=== PATIENT | female | born 1965 | race Caucasian/White ===

== ENCOUNTER 2016-09-26 07:58 | Emergency (ER) | payer OTHER ==
[~2016-09-26] VITALS: Ht 152.4 cm; Wt 81.7 kg
[~2016-09-26 07:58] MED LIST: AMARYL4 MG PO; GLUCOPHAGE XR750 MG PO; HYDROCHLOROTH12.5 M1 PO; LISINOPRIL10 MG PO
[2016-09-26] MEDS ORDERED: TRULICITY1.5 MG/0.5 SQ (08:05)
[2016-09-26] MEDS ORDERED: VITAMIN D1000 UNI1 PO (08:05)
[2016-09-26] MEDS ORDERED: INVOKANA300 MG PO (08:05)
[2016-09-26] MEDS ORDERED: FISH OIL 1,001000 M2 PO (08:05)
[2016-09-26] MEDS ORDERED: NAPROSYN500 MG PO (08:58)
== END 2016-09-26 09:15 | disposition home or self-care (01) ==
LOC: ER 07:58
DX: S63.633A Sprain of interphalangeal joint of left middle finger, initial encounter (principal); X58.XXXA Exposure to other specified factors, initial encounter; Y93.89 Activity, other specified; Y92.096 Garden or yard of other non-institutional residence as the place of occurrence of the external cause; Y99.0 Civilian activity done for income or pay

== ENCOUNTER → 2017-01-14 | Outpatient (CLI) | payer OTHER ==
[~2017-01-14] MED LIST changes: +FISH OIL 1,001000 M2 PO; +INVOKANA300 MG PO; +NAPROSYN500 MG PO; +TRULICITY1.5 MG/0.5 SQ; +VITAMIN D1000 UNI1 PO
== END ==
LOC: ULTRA 09:15
DX: N92.0 Excessive and frequent menstruation with regular cycle (principal); N83.202 Unspecified ovarian cyst, left side

== ENCOUNTER → 2017-03-21 | Outpatient (CLI) | payer OTHER ==
[~2017-03-21] VITALS: Ht 152.4 cm; Wt 82.6 kg
[~2017-03-21] MED LIST changes: +ADVAIR 250-501 EACH INH; +DIFLUCAN150 MG PO; +FARXIGA5 MG PO
--- NOTE | ~2017-03-21 | S ---
[facility] [place] [address] SURGICAL PATH RPT PROCEDURE Name: RAFIQ SUAREZ Room #: REG LADY Patito.#: [id number] Admission: 03/21/17 Date of : 63 Discharge: Report #: [id number] Path Case #: [id number] PATHOLOGY REPORT COLLECTION DATE: 03/21/2017 RECEIVED DATE: 03/21/2017 SUBMITTING PHYS: Dr. Panda Grant OTHER PHYS: Dr. Lissa Palma SPECIMEN(S) RECEIVED: A.Sigmoid colon polyp * * * * * * * * * * * * FINAL DIAGNOSIS: Polyp, sigmoid polyp, endoscopic biopsy: - Hyperplastic polyp and lymphoid aggregates. - Negative for dysplasia. (IUV:pit; 03/24/2017) PATHOLOGIST: Nel Blanco M.D. REPORT ELECTRONICALLY SIGNED BY: Nel Blanco M.D. DATE/TIME: 03/24/2017 15:08 * * * * * * * * * * * * GROSS PATHOLOGY: Received in formalin labeled "Rafiq Suarez, sigmoid polyp," is a segment of kelley soft tissue measuring 0.7 cm in maximum dimension. The specimen is submitted entirely in cassette A1. (CAA; 03/22/2017) CLINICAL HISTORY: Screening colon cancer INITIAL CPT CODE(S): A; 33712 Professional services performed by [facility] at [facility] Tianna Stephy Amaya, [place] [address] Technical services performed by [facility] at [address] [place] [address]., [address], [place] [address]. [facility] [address] [place] [address] SURGICAL PATH RPT PROCEDURE Name: SUAREZJEB Room #: REG LADY Soto#: [id number] Admission: 03/21/17 Date of : 63 Discharge: Report #: [id number] Path Case #: [id number] [address] PHONE: [phone] DIRECTOR: Nick Posadas M.D. * * * END OF REPORT * * *
== END | disposition home or self-care (01) ==
LOC: GI
DX: Z12.11 Encounter for screening for malignant neoplasm of colon (principal); D12.5 Benign neoplasm of sigmoid colon; K64.9 Unspecified hemorrhoids
CPT/HCPCS: 62110; 62900

== ENCOUNTER → 2018-06-30 | Outpatient (CLI) | payer OTHER | LOC: RAD 08:45 | DX: Z12.31 Encounter for screening mammogram for malignant neoplasm of breast (principal) ==

== ENCOUNTER → 2018-06-30 | Outpatient (CLI) | payer OTHER | LOC: CAT 09:10 | DX: Z13.6 Encounter for screening for cardiovascular disorders (principal); E78.00 Pure hypercholesterolemia, unspecified ==

== ENCOUNTER → 2018-10-21 | Outpatient (CLI) | payer OTHER | LOC: MRI 09:12 | DX: S43.401D Unspecified sprain of right shoulder joint, subsequent encounter (principal); M19.011 Primary osteoarthritis, right shoulder; X58.XXXD Exposure to other specified factors, subsequent encounter ==

== ENCOUNTER 2019-05-26 05:57 | Day surgery (SDC) | payer OTHER ==
[~2019-05-26] VITALS: Ht 152.4 cm; Wt 33.6 kg
[~2019-05-26 05:57] MED LIST changes: +ASPIR 8181 MG PO; +OMEPRAZOLE 20 M20 M1 PO
[2019-05-26 06:14] VITALS: BP 111/52
--- NOTE | 2019-05-26 08:21 | EKG ---
[address] [address] ELECTROCARDIOGRAM REPORT Name: RAFIQ SUAREZ Room #: 150-1 [facility] M.R.#: [id number] ������������������ Admission: 05/26/19 ������������������ Attend Phys: Graham Juarez Discharge: ������������������ Date of : 63 Report #: [id number] ����������������������������������������������������������������� [id number] THIS REPORT FOR: //name// [facility] Test Date: 2019-05-26 Test Time: 06:23:06 Pat Name: RAFIQ SUAREZ Department: Room: 150 Gender: F [employer]: TONI : 1965 Requested By: Graham Noble Order Number: [id number] MD: Triston Lindsay Measurements Intervals [place] Rate: 73 P: 69 NH: 154 QRS: 37 QRSD: 85 T: 48 QT: 404 QTc: 446 Interpretive Statements Sinus rhythm Normal tracing Compared to ECG 01/28/2015 02:26:05 No significant changes Electronically Signed On 05-26-2019 8:21:24 CDT by Triston Lindsay [email or web address] ��������������������������������������������� <ELECTRONICALLY SIGNED> ���������������������������������������� By: Triston Lindsay MD, [facility] ��������������������������������������������� 05/26/19 0821 2 Triston Lindsay MD, FACC /EPI
[2019-05-26 08:55] VITALS: BP 111/52
--- NOTE | 2019-05-26 10:38 | O ---
[facility] [place] [address] OPERATIVE REPORT Name: RAFIQ SUAREZ Room #: 150-1 [facility] M.R.#: [id number] Admission: 05/26/19 ������������������ Attend Phys: Graham Juarez Discharge: ������������������ Date of : 63 Report #: [id number] THIS REPORT FOR: //name// CC: Graham Palma PREOPERATIVE DIAGNOSES: Right shoulder pain, high-grade partial thickness rotator cuff tear, impingement syndrome. POSTOPERATIVE DIAGNOSES: Right shoulder high-grade near complete partial thickness rotator cuff tear, complex labral tear, intraarticular synovitis; subacromial bursitis. PROCEDURE PERFORMED: Right shoulder arthroscopy, rotator cuff repair, extensive debridement. SURGEON: Graham Noble MD PACK MASTER: Kim Camejo PA-C. ANESTHESIA: General with preoperative ultrasound-guided interscalene block. FLUIDS: 500 mL crystalloid. ESTIMATED BLOOD LOSS: Negligible. DESCRIPTION OF PROCEDURE: After proper identification of the patient and operative site in preoperative holding area, the operative site was signed by myself. Prophylactic antibiotics were given. The patient elected to receive an ultrasound-guided block after reviewing the risks, benefits, alternatives and potential complications with anesthesia. After a satisfactory block, the patient was brought back to the operative suite. After induction of satisfactory general anesthesia, right shoulder was examined. It was stable throughout a full arc of motion and comparable to the preoperative assessment. The patient was carefully positioned in the left lateral decubitus position. Cotton bag and axillary roll were utilized to support the torso. The right shoulder was sterilely prepped and draped in usual manner and placed in 10 pounds of balanced arthroscopic suspension. Posterior portal was established, joint was inflated with an arthroscopic pump set at 40 mmHg. An anterior superior portal was created using a spinal needle for localization. Examination of the glenohumeral joint revealed some mild intraarticular synovitis noted within the rotator interval and extending posteriorly along the synovial layer on the posterior labrum, complex labral fraying and tearing was noted, starting posterior to the biceps tendon extending inferiorly to approximately the 8 o'clock position. Frayed labrum was carefully debrided with motorized shaver. Chondral surface of the glenoid demonstrated some mild softening around the 2 o'clock position. Humeral head chondral surface was intact. There was an [address] [address] OPERATIVE REPORT Name: RAFIQ SUAREZ Room #: 150-1 [facility] Brittany#: [id number] Admission: 05/26/19 ������������������ Attend Phys: Graham Juarez Discharge: ������������������ Date of : 63 Report #: [id number] of partial thickness tearing on the articular side of the more posterior supraspinatus. This appeared to be a partial thickness only with a small uncovering of the footprint. Biceps tendon was intact and stable on its attachment to the labrum. It was stable within the groove. No upper border tearing of the subscapularis was noted. The arthroscope was introduced in the subacromial space where thickened subacromial bursa was encountered. It was resected for visualization purposes. There was minimal fraying on the undersurface of the coracoacromial arch and no significant prominence to the acromion was noted. An arthroscopic probe could easily be passed through the few remaining bursal fibers of the more posterior supraspinatus. There was an area of softness around this with more normal appearing tendon anterior and posterior to this. This area was carefully debrided. A small approximately 1 cm area of tearing was noted and through a separate portal off the lateral border of the acromion, a single double loaded 4.75 mm Arthrex SwiveLock anchor was inserted. This was a [employer]. It had good purchase. Suture limbs were passed in horizontal mattress fashion. They were tied with locking sliding knots, backed up with alternating half hitches, and a second double row fixation using additional SwiveLock anchor was placed. Repair construct was stable to probing. Subacromial space thoroughly irrigated with normal saline. Portals closed with simple nylon stitches. The patient will be immobilized in a sling and abduction pillow for 6 weeks postoperatively. Qualified retail store assistant utilized throughout the entire procedure to aid in patient limb positioning, visualization with the arthroscope instrument and suture passage as well as closure and sling application. ��������������������������������������������� <ELECTRONICALLY SIGNED> ���������������������������������������� By: Graham Noble MD ��������������������������������������������� 05/26/19 1038 0844 0923 Graham Noble MD /nt
== END 2019-05-26 09:35 | disposition home or self-care (01) ==
LOC: OR 05:57 → TBA 06:07 → OR 09:35
DX: M75.101 Unspecified rotator cuff tear or rupture of right shoulder, not specified as traumatic (principal); M24.111 Other articular cartilage disorders, right shoulder; M65.811 Other synovitis and tenosynovitis, right shoulder; M75.51 Bursitis of right shoulder; I10 Essential (primary) hypertension; K21.9 Gastro-esophageal reflux disease without esophagitis; E11.9 Type 2 diabetes mellitus without complications; J45.909 Unspecified asthma, uncomplicated; Z79.899 Other long term (current) drug therapy; Z79.82 Long term (current) use of aspirin; Z87.891 Personal history of nicotine dependence; Z88.8 Allergy status to other drugs, medicaments and biological substances
CPT/HCPCS: 50010; 50101; 50172; 50386; 50417; 50935; 50950; 51038; 51320; 51445; 51847; 52001; 52313; 53610; 54170; 55430; 56527; 57103; 62110; 62900; 64039; 70005

== ENCOUNTER → 2019-06-25 | Outpatient (CLI) | payer OTHER | LOC: RAD 12:40 | DX: Z12.31 Encounter for screening mammogram for malignant neoplasm of breast (principal) ==

== ENCOUNTER → 2020-07-10 | Outpatient (CLI) | payer OTHER | LOC: BC 09:43 | PROVIDERS: ATTEND Family Medicine | DX: Z12.31 Encounter for screening mammogram for malignant neoplasm of breast (principal) ==

== ENCOUNTER → 2021-03-29 | Outpatient (CLI) | payer OTHER ==
[2021-03-29 08:37] LABS: ABSOLUTE NEUTROPHILS 3.6 thou/uL (1.4-8.2); BASOPHILS 1.2 % (0.0-2.0); EOSINOPHILS 1.7 % (0.0-3.0); HEMATOCRIT 43.1 % (37.0-47.0); HEMOGLOBIN 14.3 gm/dL (12.0-15.0); LYMPHOCYTES 31.7 % (24.0-44.0); MCH 28.8 pg (26.0-34.0); MCHC 33.1 g/dL (28.0-37.0); MCV 86.9 fL (80.0-100.0); MONOCYTES 9.9 % (1.0-8.0); PLATELET COUNT 296 thou/uL (150-400); POLYS 55.5 % (36.0-66.0); RBC 4.96 mil/uL (4.20-5.00); RDW 12.6 % (10.5-14.5); WBC 6.4 thou/uL (4.0-11.0)
[2021-03-29 09:12] LABS: ALBUMIN 3.7 g/dL (3.4-5.0); CALCIUM 9.4 mg/dL (8.5-10.1); CREATININE 0.8 mg/dL (0.6-1.0); POTASSIUM 4.3 mmol/L (3.5-5.1); TOTAL BILIRUBIN 0.3 mg/dL (0.2-1.0); TOTAL PROTEIN 7.6 g/dL (6.4-8.2)
== END ==
LOC: LAB 08:03
PROVIDERS: ATTEND Family Medicine
DX: E11.9 Type 2 diabetes mellitus without complications (principal); E55.9 Vitamin D deficiency, unspecified

== ENCOUNTER → 2021-07-02 | Outpatient (CLI) | payer OTHER | LOC: BC 06-29 13:11 | PROVIDERS: ATTEND Family Medicine | DX: Z12.31 Encounter for screening mammogram for malignant neoplasm of breast (principal) ==